=== PATIENT | male | born 1975 | race Caucasian/White ===

== ENCOUNTER → 2017-11-13 | Outpatient (CLI) | payer OTHER ==
--- NOTE | 2017-11-13 07:28 | US ---
EXAMINATION TYPE: US liver DATE OF EXAM: 11/13/2017 COMPARISON: NONE CLINICAL HISTORY: R94.5 Elevated LFT. Elevated LFT's, pt has no other complaints at this time EXAM MEASUREMENTS: Liver Length: 22.2 cm Gallbladder Wall: 0.3 cm CBD: 0.4 cm Right Kidney: 11.1 x 4.6 x 5.5 cm Pancreas: Obscured by bowel gas Liver: Enlarged, heterogeneous, difficult to penetrate Gallbladder: Lumen appeared clear, GB partially contracted, pt states he is NPO Evidence for sonographic Bryant's sign: No CBD: wnl Right Kidney: wnl IMPRESSION: 1. Hepatomegaly with probable underlying fatty hepatic interval patient versus diffuse hepatocellular disease.
== END | disposition home or self-care (01) ==
LOC: RADUSWWP 07:00
PROVIDERS: ATTEND Internal Medicine
DX: R16.0 Hepatomegaly, not elsewhere classified (principal)
CPT/HCPCS: 76705

== ENCOUNTER → 2018-01-31 | Outpatient (CLI) | payer OTHER ==
--- NOTE | 2018-01-31 16:32 | XR ---
EXAMINATION TYPE: XR tibia fibula RT DATE OF EXAM: 01/31/2018 COMPARISON: NONE HISTORY: Contusion midshaft tibia and fibula TECHNIQUE: 2 view right tibia and fibula FINDINGS: No acute fractures. Joint spaces appear preserved. Soft tissues are unremarkable. IMPRESSION: 1. Normal 2 view right tibia and fibula. 2. Follow-up exams can be performed 7-10 days from acute trauma for continued pain.
--- NOTE | 2018-01-31 16:33 | XR ---
EXAMINATION TYPE: XR foot complete RT DATE OF EXAM: 01/31/2018 COMPARISON: NONE HISTORY: Pain and swelling TECHNIQUE: Three-view right foot FINDINGS: No acute fractures are evident. Soft tissues appear normal. IMPRESSION: 1. Normal three-view right foot. 2. Follow-up exams can be performed 7-10 days from acute trauma for continued pain.
--- NOTE | 2018-01-31 16:34 | XR ---
EXAMINATION TYPE: XR ankle complete RT DATE OF EXAM: 01/31/2018 COMPARISON: NONE HISTORY: Three-view right ankle TECHNIQUE: Pain, contusion FINDINGS: Ankle mortise is intact. No acute fractures are evident. Mild soft tissue swelling over the lateral malleolus may be present. Follow-up exams can be performed 7-10 days from acute trauma for continued pain. IMPRESSION: 1. Mild lateral malleolar soft tissue swelling. 2. No acute osseous abnormality.
== END | disposition home or self-care (01) ==
LOC: RADXRMAIN 16:04
PROVIDERS: ATTEND Emergency Medicine
DX: M79.89 Other specified soft tissue disorders (principal); M79.671 Pain in right foot; M25.571 Pain in right ankle and joints of right foot

== ENCOUNTER → 2020-10-07 | Outpatient (CLI) | payer OTHER ==
--- NOTE | 2020-10-07 10:15 | US ---
EXAMINATION TYPE: US abdomen complete DATE OF EXAM: 10/07/2020 COMPARISON: NONE CLINICAL HISTORY: R17 Unspecified jaundice. patient was not jaundice but is generally not feeling wel l, very dark urine, heavy legs EXAM MEASUREMENTS: Liver Length: 20.5 cm Gallbladder Wall: 0.5 cm CBD: 0.5 cm Spleen: 17.4 cm Right Kidney: 12.1 x 5.4 x 4.7 cm Left Kidney: 10.9 x 3.9 x 5.0 cm *bowel gas limits exam* Pancreas: not seen due to bowel gas Liver: enlarged and difficult to penetrate Gallbladder: wnl Evidence for sonographic Bryant's sign: no CBD: wnl Spleen: enlarged Right Kidney: wnl Left Kidney: wnl Upper IVC: wnl Abd Aorta: unable to image due to bowel gas Exam somewhat limited. There is no ascites. IMPRESSION: Possible underlying hepatocellular disease, hepatic steatosis. There is hepatosplenomegal y.
== END | disposition home or self-care (01) ==
LOC: RADUSWWP 08:18
PROVIDERS: ATTEND Family Medicine
DX: R16.2 Hepatomegaly with splenomegaly, not elsewhere classified (principal); R17 Unspecified jaundice
CPT/HCPCS: 76700